=== PATIENT | male | born 1965 | race Caucasian/White ===

== ENCOUNTER 2021-05-10 14:42 | Outpatient (CLI) | payer OTHER | END 2021-05-10 14:43 | disposition home or self-care (01) | LOC: DTY/OP 14:42 | PROVIDERS: ATTEND Surgery | DX: E11.69 Type 2 diabetes mellitus with other specified complication (principal); I11.0 Hypertensive heart disease with heart failure; I50.9 Heart failure, unspecified; I25.10 Atherosclerotic heart disease of native coronary artery without angina pectoris; E78.5 Hyperlipidemia, unspecified; Z68.41 Body mass index [BMI] 40.0-44.9, adult | CPT/HCPCS: 97802 ==